=== PATIENT | male | born 1940 | race Caucasian/White ===

== ENCOUNTER 2021-07-06 17:05 | Inpatient (IN) | payer MEDICARE ==
[~2021-07-06] VITALS: Ht 167.6 cm; Wt 90.3 kg
[~2021-07-06 17:05] MED LIST: AMARYL 2MG TABLE2 MG PO; FOLIC ACID 1 MG1 MG PO; GEMFIBROZIL600 MG PO; GLUCOTROL 10 MG10 MG PO; HUMULIN R100 UNIT/1 INJ; JALYN 0.5-0.41 EACH PO; LANTUS100 UNIT/1 SQ; LIPITOR TAB 2020 MG PO; LISINOPRIL10 MG PO; MIRALAX17 GM PO; OMEPRAZOLE20 MG PO; OS-CAL 500+D31 EACH PO; PLAVIX 75 MG TA75 MG PO; PLETAL 100 MG100 MG PO; SINGULAIR10 MG PO; TENORMIN 25 MG25 MG PO
[2021-07-06 18:07] LABS: HEMOGLOBIN 15.8 gm/dl (14.0-17.5); RED BLOOD COUNT 4.82 M/UL (4.20-5.50)
[2021-07-06 20:44] LABS: BUN/CREATININE RATIO 34 (0-10)
[2021-07-07 04:25] LABS: HEMOGLOBIN 15.1 gm/dl (14.0-17.5); RED BLOOD COUNT 4.62 M/UL (4.20-5.50); WHITE BLOOD COUNT 9.5 K/UL (4.5-11.0)
[2021-07-07 04:47] LABS: BUN/CREATININE RATIO 29 (0-10)
[2021-07-07] MEDS ORDERED: AVODART 0.5 MG0.5 MG PO (10:16)
[2021-07-07] MEDS ORDERED: ALBUTEROL2.5 MG/3 M INH (10:20)
[2021-07-07] MEDS ORDERED: JARDIANCE10 MG PO (10:21)
[2021-07-07] MEDS ORDERED: HYDROCODON-ACE1 EAC6 PO (10:21)
[2021-07-07] MEDS ORDERED: LINZESS145 MCG PO (10:21)
[2021-07-07] MEDS ORDERED: PRAVASTATIN SOD20 MG PO (10:22)
[2021-07-07] MEDS ORDERED: PREGABALIN100 MG PO (10:22)
[2021-07-07] MEDS ORDERED: PROTONIX 40 MG40 M1 PO (10:22)
[2021-07-07] MEDS ORDERED: FLOMAX 0.4 MG0.4 MG PO (10:23)
[2021-07-07] MEDS ORDERED: CILOSTAZOL100 MG PO (10:33)
[2021-07-07] MEDS ORDERED: THEREMS-M TABL1 EACH PO (10:34)
[2021-07-08 03:29] LABS: HEMOGLOBIN 14.5 gm/dl (14.0-17.5); RED BLOOD COUNT 4.52 M/UL (4.20-5.50)
[2021-07-08 03:32] LABS: WHITE BLOOD COUNT 6.3 K/UL (4.5-11.0)
[2021-07-08 04:00] LABS: BUN/CREATININE RATIO 36 (0-10)
--- NOTE | 2021-07-08 22:14 | NUR ---
UPON ASSESSMENT PT NOTED TO HAVE LABORED BREATHING AND RAPID BREATHING. 02 SAT IS 91 ON 12LHF. BP 111/59 HR 91 RR 22. PT STATES, " MY LEGS ARE KILLING ME, CAN I HAVE SOMETHING FOR PAIN." PT GIVEN PAIN MEDICATION PER ORDERS. NOTIFIED MD OF PTS CONDITION AND PAIN COMPLAINTS. ORDERS RECIEVED FOR DOPPLER OF BILATERAL LOWER LEGS.
[2021-07-09 03:06] LABS: HEMOGLOBIN 15.5 gm/dl (14.0-17.5); RED BLOOD COUNT 4.79 M/UL (4.20-5.50)
[2021-07-09 03:09] LABS: WHITE BLOOD COUNT 7.9 K/UL (4.5-11.0)
[2021-07-09 03:14] LABS: BUN/CREATININE RATIO 37 (0-10)
[2021-07-10 02:45] LABS: HEMOGLOBIN 16.7 gm/dl (14.0-17.5); RED BLOOD COUNT 5.2 M/UL (4.20-5.50)
[2021-07-10 03:02] LABS: BUN/CREATININE RATIO 33 (0-10)
[2021-07-10 10:58] LABS: BORDETELLA PARAPERTUSSIS Not Detected (Not Detectd); BORDETELLA PERTUSSIS Not Detected (Not Detectd); CHLAMYDIA PNEUMONIAE Not Detected (Not Detectd); CORONAVIRUS HKU1 Not Detected (Not Detectd); CORONAVIRUS NL63 Not Detected (Not Detectd); CORONAVIRUS OC43 Not Detected (Not Detectd); CORONOAVIRUS 229E Not Detected (Not Detectd); HUMAN METAPNEUMOVIRUS Not Detected (Not Detectd); HUMAN RHINOVIRUS/ENTEROVIRUS Not Detected (Not Detectd); INFLUENZA A Not Detected (Not Detectd); INFLUENZA B Not Detected (Not Detectd); MYCOPLASMA PNEUMONIAE Not Detected (Not Detectd); PARAINFLUENZA VIRUS 1 Not Detected (Not Detectd); PARAINFLUENZA VIRUS 2 Not Detected (Not Detectd); PARAINFLUENZA VIRUS 3 Not Detected (Not Detectd); PARAINFLUENZA VIRUS 4 Not Detected (Not Detectd); RESPIRATORY SYNCYTIAL VIRUS Not Detected (Not Detectd)
[2021-07-10 14:02] LABS: SARS-CoV-2 DETECTED (Not Detectd)
[2021-07-11 02:53] LABS: RED BLOOD COUNT 5.29 M/UL (4.20-5.50)
[2021-07-11 02:58] LABS: WHITE BLOOD COUNT 11.6 K/UL (4.5-11.0)
[2021-07-11 03:24] LABS: BUN/CREATININE RATIO 34 (0-10)
--- NOTE | 2021-07-11 04:54 | NUR ---
LATE ENTRY- 07/11/[address] IBRAHIM OF PTS ELEVATED CARDIACS. ORDERS FOR EKG AND TROPONIN RECIEVED AND PLACED.
[2021-07-12 03:44] LABS: HEMOGLOBIN 15.7 gm/dl (14.0-17.5); RED BLOOD COUNT 5.04 M/UL (4.20-5.50)
[2021-07-12 03:45] LABS: WHITE BLOOD COUNT 15.6 K/UL (4.5-11.0)
[2021-07-12 06:50] LABS: BUN/CREATININE RATIO 43 (0-10)
[2021-07-13 03:08] LABS: HEMOGLOBIN 14.8 gm/dl (14.0-17.5); RED BLOOD COUNT 4.68 M/UL (4.20-5.50); WHITE BLOOD COUNT 14.7 K/UL (4.5-11.0)
[2021-07-13 03:17] LABS: BUN/CREATININE RATIO 44 (0-10)
[2021-07-13 12:16] LABS: ORGANISM ID Not indicated. (.); SPECIMEN SOURCE Urine (.); STREPTOCOCCUS PNEUMONIAE AG Negative (Negative)
[2021-07-14 03:20] LABS: HEMOGLOBIN 15.6 gm/dl (14.0-17.5); RED BLOOD COUNT 4.89 M/UL (4.20-5.50); WHITE BLOOD COUNT 17.4 K/UL (4.5-11.0)
[2021-07-14 03:30] LABS: BUN/CREATININE RATIO 36 (0-10)
[2021-07-18 02:28] LABS: HEMOGLOBIN 15.4 gm/dl (14.0-17.5); RED BLOOD COUNT 4.88 M/UL (4.20-5.50); WHITE BLOOD COUNT 14.5 K/UL (4.5-11.0)
[2021-07-18 02:52] LABS: BUN/CREATININE RATIO 38 (0-10)
[2021-07-20 02:34] LABS: HEMOGLOBIN 14.9 gm/dl (14.0-17.5); RED BLOOD COUNT 4.71 M/UL (4.20-5.50); WHITE BLOOD COUNT 13.3 K/UL (4.5-11.0)
[2021-07-20 03:09] LABS: BUN/CREATININE RATIO 31 (0-10)
[2021-07-21 02:55] LABS: HEMOGLOBIN 15.3 gm/dl (14.0-17.5); RED BLOOD COUNT 4.86 M/UL (4.20-5.50); WHITE BLOOD COUNT 15.8 K/UL (4.5-11.0)
[2021-07-21 03:25] LABS: BUN/CREATININE RATIO 33 (0-10)
[2021-07-22 03:00] LABS: HEMOGLOBIN 14.5 gm/dl (14.0-17.5); RED BLOOD COUNT 4.49 M/UL (4.20-5.50); WHITE BLOOD COUNT 12.3 K/UL (4.5-11.0)
[2021-07-22 03:12] LABS: BUN/CREATININE RATIO 29 (0-10)
[2021-07-23 03:44] LABS: HEMOGLOBIN 15.6 gm/dl (14.0-17.5); RED BLOOD COUNT 4.83 M/UL (4.20-5.50); WHITE BLOOD COUNT 13.5 K/UL (4.5-11.0)
[2021-07-23 03:59] LABS: BUN/CREATININE RATIO 35 (0-10)
[2021-07-24 04:33] LABS: HEMOGLOBIN 17.1 gm/dl (14.0-17.5); RED BLOOD COUNT 5.24 M/UL (4.20-5.50); WHITE BLOOD COUNT 10.7 K/UL (4.5-11.0)
[2021-07-24 04:54] LABS: BUN/CREATININE RATIO 30 (0-10)
[2021-07-25 04:01] LABS: HEMOGLOBIN 15.6 gm/dl (14.0-17.5); RED BLOOD COUNT 4.83 M/UL (4.20-5.50); WHITE BLOOD COUNT 10.6 K/UL (4.5-11.0)
[2021-07-25 04:09] LABS: BUN/CREATININE RATIO 38 (0-10)
--- NOTE | 2021-07-25 13:27 | NUR ---
ROOM AIR SAT 81%
[2021-07-26 02:56] LABS: HEMOGLOBIN 16.2 gm/dl (14.0-17.5); RED BLOOD COUNT 4.99 M/UL (4.20-5.50); WHITE BLOOD COUNT 10.8 K/UL (4.5-11.0)
[2021-07-26 03:26] LABS: BUN/CREATININE RATIO 32 (0-10)
[2021-07-26] MEDS ORDERED: MEDROL DOSEPAK 24 MG PO (09:55)
== END 2021-07-26 13:31 | disposition home health service (06) | DRG 177 ==
LOC: ER1 17:05 → PROG CARE 21:27 → CDU 21:27 → PROG CARE 07-07 02:30
PROVIDERS: Family Medicine; Internal Medicine; ADMIT Internal Medicine
PROC: 8E0ZXY6 Isolation (ICD-10-PCS; principal; 2021-07-06)
PROC: XW033E5 Introduction of Remdesivir Anti-infective into Peripheral Vein, Percutaneous Approach, New Technology Group 5 (ICD-10-PCS; 2021-07-06)
PROC: 3E0333Z Introduction of Anti-inflammatory into Peripheral Vein, Percutaneous Approach (ICD-10-PCS; 2021-07-06)
PROC: XW033H5 Introduction of Tocilizumab into Peripheral Vein, Percutaneous Approach, New Technology Group 5 (ICD-10-PCS; 2021-07-07)
PROC: 5A0945A Assistance with Respiratory Ventilation, 24-96 Consecutive Hours, High Flow/Velocity Cannula (ICD-10-PCS; 2021-07-07)
PROC: 3E03329 Introduction of Other Anti-infective into Peripheral Vein, Percutaneous Approach (ICD-10-PCS; 2021-07-08)
PROC: 5A09357 Assistance with Respiratory Ventilation, Less than 24 Consecutive Hours, Continuous Positive Airway Pressure (ICD-10-PCS; 2021-07-09)
PROC: B24BZZZ Ultrasonography of Heart with Aorta (ICD-10-PCS; 2021-07-10)
PROC: 5A0955A Assistance with Respiratory Ventilation, Greater than 96 Consecutive Hours, High Flow/Velocity Cannula (ICD-10-PCS; 2021-07-12)
PROC: 5A0945A Assistance with Respiratory Ventilation, 24-96 Consecutive Hours, High Flow/Velocity Cannula (ICD-10-PCS; 2021-07-12)
PROC: 5A09357 Assistance with Respiratory Ventilation, Less than 24 Consecutive Hours, Continuous Positive Airway Pressure (ICD-10-PCS; 2021-07-12)
DX: U07.1 COVID-19 (principal); J12.82 Pneumonia due to coronavirus disease 2019; J80 Acute respiratory distress syndrome; J15.9 Unspecified bacterial pneumonia; J44.0 Chronic obstructive pulmonary disease with (acute) lower respiratory infection; E87.2 Acidosis; I34.0 Nonrheumatic mitral (valve) insufficiency; E11.649 Type 2 diabetes mellitus with hypoglycemia without coma; I25.10 Atherosclerotic heart disease of native coronary artery without angina pectoris; I10 Essential (primary) hypertension; E78.5 Hyperlipidemia, unspecified; J62.8 Pneumoconiosis due to other dust containing silica; G89.29 Other chronic pain; K21.9 Gastro-esophageal reflux disease without esophagitis; I95.9 Hypotension, unspecified; Z99.81 Dependence on supplemental oxygen; Z87.19 Personal history of other diseases of the digestive system; Z90.49 Acquired absence of other specified parts of digestive tract; Z95.5 Presence of coronary angioplasty implant and graft; Z83.3 Family history of diabetes mellitus; Z87.891 Personal history of nicotine dependence; Z23 Encounter for immunization; Z79.4 Long term (current) use of insulin; Z79.810 Long term (current) use of selective estrogen receptor modulators (SERMs); Z79.02 Long term (current) use of antithrombotics/antiplatelets; Z79.811 Long term (current) use of aromatase inhibitors
CPT/HCPCS: ECHO; 36415; 36600; 71045; 71046; 80048; 80053; 80202; 82550; 82553; 82803; 82962; 83036; 83605; 83735; 83874; 83880; 84100; 84484; 85025; 85027; 86140; 87040; 87070; 87081; 87205; 87278; 87633; 87899; 93005; 93306; 93970; 94640; 94660; 94664; 94760; 96374; 97110; 97161; 97530; 99285; J0248; J0360; J0692; J0696; J1100; J1650; J1940; J2270; J2405; J3370; J3475; J7030; J7070; Q9967

== ENCOUNTER → 2021-11-02 | Outpatient (CLI) | payer MEDICARE ==
[~2021-11-02] MED LIST changes: +ALBUTEROL2.5 MG/3 M INH; +AVODART 0.5 MG0.5 MG PO; +CILOSTAZOL100 MG PO; +ERYTHROMYCIN O3.5 GM OU; +FLOMAX 0.4 MG0.4 MG PO; +FLUCONAZOLE150 MG PO; +HUMALOG 10100 UNITS/ SC; +HYDROCODON-ACE1 EAC6 PO; +IPRAT-ALBUT 0.5-3 ML NEB; +JARDIANCE10 MG PO; +LINZESS145 MCG PO; +MAGIC MOUTHWASH PO; +MEDROL DOSEPAK 24 MG PO; +MYCOSTATIN100000 UTS PO; +PRAVASTATIN SOD20 MG PO; +PREGABALIN100 MG PO; +PROTONIX 40 MG40 M1 PO; +THEREMS-M TABL1 EACH PO
== END ==
LOC: RAD 12:43
DX: R06.02 Shortness of breath (principal)
CPT/HCPCS: 71046